=== PATIENT | female | born 1950 | race Caucasian/White ===

== ENCOUNTER 2018-06-14 07:39 | Day surgery (SDC) | payer MEDICARE, OTHER ==
[2018-06-04 14:30] VITALS: BMI 35.5
[~2018-06-14 07:39] MED LIST: LACTATED RINGERS 1,000 ML IV SCH
[2018-06-14 08:12] VITALS: TEMP 98.2
[2018-06-14 08:18] LABS: Glucose,Whole Blood 174 mg/dL (75-99)
[2018-06-14] MEDS ORDERED: PROPOFOL 10 MG/ML 20 ML VIAL IV ONE (08:32)
[2018-06-14] MEDS ORDERED: GLYCOPYRROLATE 0.2 MG/ML 2 ML VIAL ONE (08:32)
[2018-06-14] MEDS ORDERED: LIDOCAINE 1% INJ 10MG/ML (20 ML MDV) ONE (08:32)
--- NOTE | 2018-06-14 09:06 | P.PCN ---
Date of Procedure: 06/14/18 Procedure(s) Performed: Procedure: 1. Esophagogastroduodenoscopy. 2. Total colonoscopy. Preoperative diagnosis: Iron deficiency anemia. Postoperative diagnosis: 1. Small sliding hiatal hernia with no obvious esophagitis or complicated reflux disease. 2. Small distal esophageal varices with no stigmata of bleeding. 3. Mild gastritis with no ulcers, bleeding or gastric varices. 4. Less than ideal colon preparation, otherwise, exam to the cecum shows mild sigmoid diverticulosis with no evidence of acute diverticulitis , strictures, polyps, cancer, angiodysplasia or other potential sources of bleeding or any evidence of bleeding at the time of this exam. Preparation: HalfLytely prep. Sedation: Was provided by anesthesia. Brief clinical history: The patient is a 68-year-old female who is scheduled for this evaluation because of iron deficiency anemia. She had a prior evaluation with me in July 2015 because of history of reflux and iron deficiency anemia. Her exam, at that time, showed small sliding hiatal hernia, mild gastritis and sigmoid diverticulosis. The patient denies any overt bleeding. No new abdominal complaints or change in bowel habits. Procedure: With the patient on her left lateral decubitus position and after informed consent and adequate sedation, I passed the Olympus-GIF H190 video upper endoscope through the cricopharyngeus down the esophagus. GE junction was around 30 cm from the incisors and there was a small sliding hiatal hernia but no obvious esophagitis or complicated reflux disease. The distal esophagus was noted to have small columns of esophageal varices with no stigmata of bleeding. The endoscope was then passed into the stomach which was insufflated with air and inspected in detail including the retroflex view in the cardia. There was diffuse mottling and erythema but there was no ulcers, erosions, bleeding or gastric varices. Pyloric channel, duodenal bulb, post bulbar area and descending duodenum appeared within normal limits. No biopsies were indicated then the endoscope was withdrawn and I proceeded with the colonoscopy. Perianal area did not show any fissures or fistulas. There were no masses felt on digital rectal examination. The Olympus CFH 190L video colonoscope was then inserted in the rectum in the usual fashion and advanced to the cecum. There was occasional small diverticular orifices seen scattered in the sigmoid with no evidence of acute diverticulitis or strictures. No polyps or tumors were seen or any angiodysplasia or bleeding or other potential sources of bleeding. I retroflexed the endoscope in the rectum before the endoscope was withdrawn. The patient tolerated the procedure well. Plan: The patient was reassured. Consideration would be given for a capsule endoscopy if she continues to manifest evidence of iron deficiency anemia and suggestion of a GI source of bleeding. We would keep you updated on her progress.
[2018-06-14 09:36] VITALS: BP 122/82; PULSE 79; RESP 18
== END 2018-06-14 09:42 | disposition home or self-care (01) ==
LOC: ORWHC2ENDO 07:39
DX: K44.9 Diaphragmatic hernia without obstruction or gangrene (principal); K57.30 Diverticulosis of large intestine without perforation or abscess without bleeding; I85.00 Esophageal varices without bleeding; K21.9 Gastro-esophageal reflux disease without esophagitis; E11.51 Type 2 diabetes mellitus with diabetic peripheral angiopathy without gangrene; I10 Essential (primary) hypertension; E78.5 Hyperlipidemia, unspecified; Z87.891 Personal history of nicotine dependence; E07.9 Disorder of thyroid, unspecified; Z87.19 Personal history of other diseases of the digestive system; Z79.02 Long term (current) use of antithrombotics/antiplatelets; Z79.890 Hormone replacement therapy; Z79.4 Long term (current) use of insulin; Z79.899 Other long term (current) drug therapy; Z91.048 Other nonmedicinal substance allergy status
CPT/HCPCS: 45378; 43235; J2001; J2704

== ENCOUNTER 2022-01-15 10:26 | Emergency (ER) | payer MEDICARE, OTHER ==
[2022-01-15] MEDS ORDERED: HYDROmorphone 0.5 MG/0.5 ML SYRINGE IVP STA ×3 (10:49→13:51)
--- NOTE | 2022-01-15 10:51 | ED ---
General Adult HPI - General Chief complaint: Fall Stated complaint: fall,hip injury Time Seen by Provider: 01/15/22 10:31 Source: patient, RN notes reviewed Mode of arrival: EMS Limitations: no limitations - History of Present Illness Initial comments: Patient is a pleasant 71-year-old female presenting to the emergency department with concerns with fall. Patient fell this morning. Patient landed on her left hip. Patient does have history of previous left hip repair. Patient complains of discomfort in that area currently rated 5/10 following fentanyl by EMS. Patient states discomfort is greatly increased with movement. No other area of injury or concern. No syncope. No head injury or loss of consciousness. - Related Data Home Medications Medication Instructions Recorded Confirmed Clopidogrel [Plavix] 75 mg PO HS 06/14/14 01/15/22 Levothyroxine Sodium [Synthroid] 100 mcg PO HS 06/14/14 01/15/22 Simvastatin [Zocor] 40 mg PO HS 06/14/14 01/15/22 sitaGLIPtin PHOS/metFORMIN HCL 1 tab PO BID-W/MEALS 06/04/18 01/15/22 [Janumet 50-1,000 mg Tablet] Cyanocobalamin (Vitamin B-12) 1,000 mcg PO DAILY 01/15/22 01/15/22 [Vitamin B-12] Folic Acid 0.8 mg PO DAILY 01/15/22 01/15/22 Insulin Glargine/Lixisenatide 40 units SQ HS 01/15/22 01/15/22 [Soliqua 100 Unit-33 Mcg/ml Pen] Propranolol [Inderal] 10 mg PO DAILY 01/15/22 01/15/22 lisinopriL [Prinivil] 10 mg PO DAILY 01/15/22 01/15/22 Allergies Allergy/AdvReac Type Severity Reaction Status Date / Time aspirin Allergy Unknown Rash/Hives Verified 01/15/22 11:22 ciprofloxacin [From Cipro] Allergy Unknown Rash/Hives Verified 01/15/22 11:22 ciprofloxacin HCl Allergy Unknown Rash/Hives Verified 01/15/22 11:22 [From Cipro] codeine Allergy Unknown Rash/Hives Verified 01/15/22 11:22 influenza virus vaccine, Allergy Unknown Rash/Hives Verified 01/15/22 11:22 specific [influenza virus vacc,specific] Iodine and Iodide Containing Allergy Unknown Rash/Hives Verified 01/15/22 11:22 Produc morphine Allergy Unknown Rash/Hives Verified 01/15/22 11:22 Neuromuscular Blockers, Allergy Unknown Rash/Hives Verified 01/15/22 11:22 Steroidal [Steroidal Neuromuscular Blockers] sulfamethoxazole Allergy Unknown Rash/Hives Verified 01/15/22 11:22 [From Bactrim] trimethoprim [From Bactrim] Allergy Unknown Rash/Hives Verified 01/15/22 11:22 Iodinated Contrast Media Allergy Rash/Hives Verified 01/15/22 11:22 Review of Systems ROS Statement: Those systems with pertinent positive or pertinent negative responses have been documented in the HPI. ROS Other: All systems not noted in ROS Statement are negative. Constitutional: Denies: fever Eyes: Denies: eye pain ENT: Denies: ear pain Respiratory: Denies: cough Cardiovascular: Denies: chest pain Endocrine: Denies: fatigue Gastrointestinal: Denies: abdominal pain Genitourinary: Denies: dysuria Musculoskeletal: Reports: as per HPI. Denies: back pain Skin: Denies: rash Neurological: Denies: headache, weakness Past Medical History Past Medical History: Blood Disorder, Diabetes Mellitus, GERD/Reflux, Hyperlipidemia, Hypertension, Osteoarthritis (OA), Skin Disorder, Thyroid Disorder, Vascular Disorder Additional Past Medical History / Comment(s): IBS, GASTRITIS., POLYCYTHEMIA, PSORIASIS. , PVD- STENTS PEDRO GROINS., ANEMIA., HIATAL HERNIA. History of Any Multi-Drug Resistant Organisms: None Reported Past Surgical History: Cholecystectomy, Hernia Repair, Hysterectomy, Joint Replacement, Orthopedic Surgery, Tonsillectomy Additional Past Surgical History / Comment(s): RT ROTATOR CUFF REPAIR, PEDRO KNEE REPLACEMENTS, POLYPS ON VOCAL CORDS.stents to lower legs groin area Past Anesthesia/Blood Transfusion Reactions: No Reported Reaction Past Psychological History: No Psychological Hx Reported Smoking Status: Former smoker Past Alcohol Use History: None Reported Past Drug Use History: None Reported - Past Family History Sister(s) Family Medical History: Cancer Additional Family Medical History / Comment(s): BREAST CANCER General Exam Limitations: no limitations General appearance: alert, in no apparent distress Head exam: Present: atraumatic Eye exam: Present: normal appearance Neck exam: Present: normal inspection. Absent: tenderness Respiratory exam: Present: normal lung sounds bilaterally Cardiovascular Exam: Present: regular rate, normal rhythm Expanded Peripheral pulses: 2+: Posterior Tibialis (R), Posterior Tibialis (L), Dorsalis Pedis (R), Dorsalis Pedis (L) GI/Abdominal exam: Present: soft. Absent: tenderness Extremities exam: Present: tenderness (Moderate to severe tenderness and fullness left anterior hip. Left leg is shortened and externally rotated. Distally the extremity is neurovascularly intact.) Neurological exam: Present: alert. Absent: motor sensory deficit Psychiatric exam: Present: normal affect, normal mood Skin exam: Present: normal color Course Vital Signs 01/15/22 01/15/22 01/15/22 10:41 11:35 12:00 Temperature 98 F Pulse Rate 89 84 85 Respiratory 18 20 18 Rate Blood Pressure 173/76 151/67 186/75 O2 Sat by Pulse 92 L 92 L 93 L Oximetry 01/15/22 01/15/22 13:40 14:00 Temperature Pulse Rate 77 76 Respiratory 18 17 Rate Blood Pressure 147/62 128/53 O2 Sat by Pulse 91 L 94 L Oximetry - Reevaluation(s) Reevaluation #1: 01/15/22 11:17 Orthopedics has been paged. 01/15/22 12:06 Orthopedics paged again 01/15/22 12:41 cAce was discussed with Eryn with orthopedics who does recommend transfer after reviewing images with Dr. Jacboo some 01/15/22 13:[address] Hedrick, out of [facility] who is not available at this time and message was left. 01/15/22 14:15 Still no return call from Dr. Hedrick, case was discussed with Dr. Hammond, who will accept transfer to [facility]. 01/15/22 14:16 Transfer center called Medical Decision Making - Radiology Data Radiology results: image reviewed (Left IT fracture. Comminuted. Extensive postsurgical changes left femur and left knee with hardware intact. Lesion left distal femur with fall and fragments sign. Chest x-ray shows no acute process) Disposition Clinical Impression: Trochanteric fracture of left femur Disposition: OTHER INSTITUTION NOT DEFINED Is patient prescribed a controlled substance at d/c from ED?: No Referrals: Sha Denise MD [Primary Care Provider] - 1-2 days Time of Disposition: 14:16 - Out of Hospital Transfer - Req. Specs Out of Hospital Transfer - Requested Specifics: Other Emergency Center
--- NOTE | 2022-01-15 11:21 | XR ---
EXAMINATION TYPE: XR chest 1V portable DATE OF EXAM: 01/15/2022 11:11 AM COMPARISON: None TECHNIQUE: XR chest 1V portable Frontal view of the chest. CLINICAL INDICATION:Female, 71 years old with history of HIP FX; FINDINGS: Limited examination due to patient's body habitus. Lungs/Pleura: There is no evidence of pleural effusion, focal consolidation, or pneumothorax. Pulmonary vascularity: Unremarkable. Heart/mediastinum: Cardiomediastinal silhouette is enlarged. Musculoskeletal: No acute osseous pathology. IMPRESSION: No acute cardiopulmonary disease/process. Cardiomegaly.
--- NOTE | 2022-01-15 11:34 | XR ---
EXAMINATION TYPE: XR Hip LT and AP Pelvis, XR femur LT DATE OF EXAM: 01/15/2022 11:11 AM INDICATION: Patient age:Female; 71 years old; Reason for study: fall; COMPARISON: None. TECHNIQUE: The left hip was examined in the frontal and crosstable lateral projections and a AP pelvi s. Left femur was examined in lateral and frontal projections. FINDINGS: Acute comminuted left intratrochanteric fracture with angulation. This extends through the lesser trochanter. No dislocation. Postsurgical changes of the left femur with fixation plate and tra nsverse screws. Additional postsurgical changes of the distal left femur and proximal tibia. Hardware appears intact. Expansile lesional appearance of the distal left metaphysis with lucency. Fallen fra gment sign demonstrated. Narrow zone of transition. Pelvic phlebolith. Vascular sclerosis. IMPRESSION: * Acute comminuted left intratrochanteric fracture. * Extensive postsurgical changes of the left femur and left knee. Hardware appears intact. * Expansile lesion involving the distal left femur with fallen fragment sign. This may represent a s olitary bone cyst versus other etiologies with possible fracture which may be remote since there is s urrounding fixation hardware. Correlation with prior imaging and clinical history is recommended.
[2022-01-15] MEDS ORDERED: HYDROmorphone 1 MG/ML 1 ML SYRINGE IVP STA ×2 (14:51→17:26)
[2022-01-15 15:02] VITALS: RESP 18
[2022-01-15 16:11] LABS: Basophils % (A) 0 %; Eosinophils # (A) 0.2 k/uL (0-0.7); Eosinophils % (A) 3 %; HCT 35.7 % (34.0-46.0); HGB 11.4 gm/dL (11.4-16.0); Hypochromasia Slight; Lymphocytes # (A) 0.6 k/uL (1.0-4.8); Lymphocytes % (A) 11 %; MCH 29.5 pg (25.0-35.0); MCV 92.2 fL (80.0-100.0); Mean Platelet Volume 8.8; Monocytes # (A) 0.2 k/uL (0-1.0); Monocytes % (A) 4 %; Neutrophils # (A) 4.7 k/uL (1.3-7.7); Neutrophils % (A) 82 %; RBC 3.87 m/uL (3.80-5.40); RDW 15.4 % (11.5-15.5); WBC 5.8 k/uL (3.8-10.6)
[2022-01-15 16:12] LABS: INR 1.2 (<1.2); Partial Thromboplastin Time 22.5 sec (22.0-30.0); Prothrombin Time 12.8 sec (9.0-12.0)
[2022-01-15 16:18] LABS: ALT 18 U/L (4-34); AST 30 U/L (14-36); African American GFR (CKD) >90 (>60 ml/min/1.73 sqM); Albumin 2.9 g/dL (3.5-5.0); Alkaline Phosphatase 115 U/L (38-126); Anion Gap 9 mmol/L; Blood Urea Nitrogen 15 mg/dL (7-17); Calcium 8.6 mg/dL (8.4-10.2); Carbon Dioxide 26 mmol/L (22-30); Chloride 101 mmol/L (98-107); Glucose 146 mg/dL (74-99); Non-African American GFR(CKD) >90 (>60 ml/min/1.73 sqM); Potassium 3.9 mmol/L (3.5-5.1); Sodium 136 mmol/L (137-145); Total Bilirubin 2.1 mg/dL (0.2-1.3); Total Protein 6.3 g/dL (6.3-8.2)
[2022-01-15 16:23] LABS: Large Platelets Present; Platelet Count 93 k/uL (150-450)
[2022-01-15 16:25] LABS: Polychromasia Present
[2022-01-15 17:44] VITALS: BP 154/87; PULSE 77; TEMP 97.8
== END 2022-01-15 17:40 | disposition other institution (70) ==
LOC: EC 10:26
DX: S72.102A Unspecified trochanteric fracture of left femur, initial encounter for closed fracture (principal); E11.9 Type 2 diabetes mellitus without complications; E78.5 Hyperlipidemia, unspecified; K21.9 Gastro-esophageal reflux disease without esophagitis; M19.90 Unspecified osteoarthritis, unspecified site; Z87.891 Personal history of nicotine dependence; E07.9 Disorder of thyroid, unspecified; Z91.041 Radiographic dye allergy status; Z88.2 Allergy status to sulfonamides; Z88.8 Allergy status to other drugs, medicaments and biological substances; Z88.5 Allergy status to narcotic agent; Z88.7 Allergy status to serum and vaccine; Z88.6 Allergy status to analgesic agent; Z88.1 Allergy status to other antibiotic agents; Z79.01 Long term (current) use of anticoagulants; Z79.899 Other long term (current) drug therapy; Z79.84 Long term (current) use of oral hypoglycemic drugs; Z79.890 Hormone replacement therapy; Z79.4 Long term (current) use of insulin; W19.XXXA Unspecified fall, initial encounter
CPT/HCPCS: 36415; 93005; 80053; 85025; 85610; 85730; 73502; 73552; 71045; 96374; 96376; 99285; J1170 ×2